=== PATIENT | female | born 1960 | race Caucasian/White ===

== ENCOUNTER 2018-06-30 14:05 | Outpatient (CLI) | payer OTHER ==
[~2018-06-30] VITALS: Ht 172.7 cm; Wt 83.9 kg
[2018-06-30 14:00] VITALS: BP 112/62
[2018-06-30] MEDS ORDERED: LOPERAMIDE2 M1 PO (16:20)
[2018-06-30] MEDS ORDERED: OMEPRAZOLE20 M2 ORAL (16:20)
[2018-06-30] MEDS ORDERED: LEXAPRO5 MG ORAL (16:20)
[2018-06-30] MEDS ORDERED: VITAMIN D1000 UNI1 ORAL (16:20)
[2018-06-30] MEDS ORDERED: TYLENOL325 M1 PO (16:20)
[2018-06-30] MEDS ORDERED: ZANTAC150 MG ORAL (16:20)
--- NOTE | 2018-06-30 16:24 | GI Initial Consult Note ---
History of Present Illness General Date patient seen: Jun 30, 2018 Time patient seen: 16:02 Referring physician: DEVON Reason for Consultation: ABDOMINAL PAIN Present Illness HPI 58 year old female presents today with c/o of abdominal pain. The patient recently had multiple visits to other MDs without being able to find the reasoning behind her abdominal pain. She recently undergone an EGD approximately 1 month ago, noted with an esophageal nodule and medium hiatal hernia. H Pylori was negative. Stool culture negative. She presents today with c/o of abdominal pain, GERD, occasional vomiting and abdominal bloating. Home Meds Reported Medications Escitalopram Oxalate (LEXAPRO) 5 Mg Tablet, 10 MG ORAL DAILY, TAB 06/30/18 Acetaminophen (Tylenol) Unknown Strength Capsule, PO, CAP 06/30/18 Omeprazole (OMEPRAZOLE) 20 Mg Capsule.dr, 20 MG ORAL DAILY, CAP 06/30/18 Ranitidine Hcl* (ZANTAC*) 150 Mg Tablet, 150 MG ORAL TWICE A DAY, TAB 06/30/18 Cholecalciferol (Vitamin D3)* (VITAMIN D*) 1,000 Unit Tablet, 1000 UNIT ORAL DAILY, #30 TAB 06/30/18 Loperamide Hcl (LOPERAMIDE) Unknown Strength Tablet, PO, TAB 06/30/18 Med list reviewed/reconciled: Yes Allergies: Coded Allergies: Sulfa (Sulfonamide Antibiotics) (Unverified Allergy, Severe, 06/30/18) Patient History History Provided By: Patient, Medical Record [facility] Narrative Chronic gastritis Severe major depression PUD GERD hemorrhoids chronic diarrhea nodule of the esophagus Past Surgical History: Appendectomy Breast Augmentation Pertinent Family History: none Social History: Denies: smoking, alcohol use, drug use, other Review of Systems All Other Systems: negative except mentioned in HPI Physical Exam T 98.0 BP 112/62 P 78 94 RA HT 5'8 WT 185.5 lbs Sp02 EP Interpretation: reviewed, normal General Appearance: well appearing, no apparent distress, alert Head: normocephalic EENT: PERRL/EOMI, normal ENT inspection Neck: supple Respiratory: normal breath sounds, no respiratory distress Cardiovascular: normal rate Gastrointestinal: normal inspection, non tender, soft, normal bowel sounds, non -distended Rectal: deferred Genitourinary: no CVA tenderness Musculoskeletal: normal inspection, back normal Neurologic: normal inspection, alert, oriented x3, responsive Psychiatric: normal inspection, judgement/insight normal, memory normal Skin: normal inspection, normal color, no rash, warm/dry, palpation normal, well hydrated Lymphatic: normal inspection, no adenopathy GI: Plan Problems: (1) Depression (2) Gastritis (3) PUD (peptic ulcer disease) (4) GERD (gastroesophageal reflux disease) (5) Abdominal pain (6) Hemorrhoids (7) Irritable bowel syndrome (IBS) Plan Rx trial Viberzi 100mg BID RTC if no improvement Seen with Dr. Apodaca. Thank you for this patient referral. The patient was seen and examined at bedside and all new and available data was reviewed in the patients chart. I agree with the above findings, impression and plan. (Patient seen earlier today. Signature stamp does not reflect patient encounter time.). - MD Jennifer CastilloBullhead Community HospitalStevo GARSIA Jun 30, 2018 16:24
== END 2018-06-30 14:37 | disposition home or self-care (01) ==
LOC: PAN 14:05
DX: R10.9 Unspecified abdominal pain (principal); F32.9 Major depressive disorder, single episode, unspecified; K29.70 Gastritis, unspecified, without bleeding; K27.9 Peptic ulcer, site unspecified, unspecified as acute or chronic, without hemorrhage or perforation; K21.9 Gastro-esophageal reflux disease without esophagitis; K64.9 Unspecified hemorrhoids; K58.9 Irritable bowel syndrome, unspecified; Z90.89 Acquired absence of other organs; Z88.2 Allergy status to sulfonamides; K44.9 Diaphragmatic hernia without obstruction or gangrene
CPT/HCPCS: 99202

== ENCOUNTER 2020-02-01 05:58 | Emergency (ER) | payer MEDICAID, OTHER ==
[~2020-02-01] VITALS: Ht 177.8 cm; Wt 86.2 kg
[~2020-02-01 05:58] MED LIST: LEXAPRO5 MG ORAL; LOPERAMIDE2 M1 PO; OMEPRAZOLE20 M2 ORAL; TYLENOL325 M1 PO; VITAMIN D1000 UNI1 ORAL; ZANTAC150 MG ORAL
[2020-02-01 06:15] VITALS: BP 138/77
--- NOTE | 2020-02-01 06:15 | NUR ---
ED Nurse Note: Patient walked in to ED from home c/o allergic reaction after taking Immunocal yesterday at 1500. Reports difficulty breathing, sorethroat, throat dryness. O2 97% RA, not in any distress. Denies hives, itchiness. Per pt, she took allergy meds but no relief.
[2020-02-01] MEDS ORDERED: BENADRYL25 M3 PO (06:33)
--- NOTE | 2020-02-01 06:35 | NUR ---
ED Nurse Note: Pt cleared by ERMD for discharge. DC instructions/prescription was given and explained to pt and verbalized understanding of teachings. All medical deviecs such as ID band removed. Pt is AAO x4, ambulatory and left with all personal belongings.
--- NOTE | 2020-02-01 06:40 | Emergency Room Report ---
History of Present Illness General Chief Complaint: Allergic Reaction Source: Patient Present Illness HPI Patient is a 59-year-old female who presents to the ER complaining of allergic reaction. Patient states that she has dry throat and difficulty breathing after taking Immunocal yesterday at 3 PM. She states that she took loratadine but still has the same issues. Patient states that she is still having dry mouth and feels like she is having an allergic reaction. No rash. No chest pain. Patient is requesting another allergy medicine. I explained to her that allergy medicines would further make her throat feel dry but she states that she still wants it. Patient is in no acute distress. COVID-19 risk:Travel to affect: No Has patient experienced chadwick: No Allergies: Coded Allergies: SULFA (SULFONAMIDE ANTIBIOTICS) (Unverified Allergy, Severe, 06/30/18) Patient History Social History: Denies: smoking, alcohol use, drug use Reviewed Nursing Documentation: PMH: Agreed; PSxH: Agreed Nursing Documentation-PMH Hx Cardiac Problems: No Hx Cancer: No Hx Gastrointestinal Problems: Yes Hx Neurological Problems: No Review of Systems All Other Systems: negative except mentioned in HPI Physical Exam Vital Signs Date Time Temp Pulse Resp B/P (MAP) Pulse Ox O2 Delivery O2 Flow Rate FiO2 02/01/20 06:07 97.7 71 16 138/77 (97) 97 Room Air Sp02 EP Interpretation: reviewed, normal General Appearance: no apparent distress, alert, GCS 15, non-toxic Head: normocephalic, atraumatic Eyes: bilateral eye normal inspection, bilateral eye PERRL ENT: hearing grossly normal, normal pharynx, no angioedema, normal voice Neck: full range of motion, supple/symm/no masses Respiratory: chest non-tender, lungs clear, normal breath sounds, speaking full sentences, other - No respiratory distress, no wheezing, no stridor Cardiovascular #1: regular rate, rhythm, no edema Gastrointestinal: normal bowel sounds, non tender, soft, non-distended, no guarding, no rebound Rectal: deferred Genitourinary: normal inspection, no CVA tenderness Musculoskeletal: back normal, normal range of motion, calf tenderness, gait/ station normal, non-tender Neurologic: alert, motor strength/tone normal, oriented x3, sensory intact, responsive, speech normal Psychiatric: judgement/insight normal, memory normal, mood/affect normal, no suicidal/homicidal ideation Skin: no rash Lymphatic: no adenopathy Medical Decision Making Diagnostic Impression: Primary Impression: Encounter for medical screening examination ER Course Patient in no acute distress. Patient has no signs of allergic reaction. She has no rash, no wheezing, no intraoral swelling, no conjunctivitis. Requesting allergy medication. I have given her a prescription for Benadryl. After discussing risks and benefits of further diagnostics, treatment plans, as well as indications for and risks of admission, the patient is agreeable to being discharged home. I have explained that their evaluation and treatment in the emergency department today is an important step towards them achieving better health but that their evaluation today is not intended to replace further evaluation and treatment by a physician in their local clinic. I have explained that while the current findings suggest no immediate life threatening emergency they will require further evaluation and treatment by a physician of their choice in their area. They understand that it will be necessary for them to review the final reports of their ED visit with their clinic physician. We have reviewed indications for return to the Emergency Department. I have explained that additional time may need to pass and/or additional testing as an outpatient may be necessary before a definitive diagnosis can be made. They tell me they are willing to follow up as instructed within the timeframe I recommend. They appear to understand what we discussed. Additionally they understand that if they are unable to be seen by an outpatient physician they are welcome, and in fact should, return to the Emergency Department for a repeat evaluation. The patient is stable at time of discharge. Last Vital Signs Date Time Temp Pulse Resp B/P (MAP) Pulse Ox O2 Delivery O2 Flow Rate FiO2 02/01/20 06:35 97.7 71 16 138/77 97 Room Air Disposition: HOME, SELF-CARE Condition: Stable Scripts Diphenhydramine HCl (Benadryl) 25 Mg Capsule 25 MG PO Q6HR, #20 CAP Prov: Becca Sanders M.D. 02/01/20 Referrals: [facility] Patient Instructions: Allergies Additional Instructions: The patient was provided with discharge instructions, notified to follow-up with a primary care doctor and or specialist in the next 24-48 hours, and to return to the ED if they have worsening of their symptoms. Please note that this report is being documented using [employer] technology. This can lead to erroneous entry secondary to incorrect interpretation by the dictating instrument. Becca Sanders M.D. Feb 01, 2020 06:40
== END 2020-02-01 06:35 | disposition home or self-care (01) ==
LOC: EMR 06:35
DX: T78.40XA Allergy, unspecified, initial encounter (principal); X58.XXXA Exposure to other specified factors, initial encounter; Y92.9 Unspecified place or not applicable; Z88.2 Allergy status to sulfonamides
CPT/HCPCS: 99281

== ENCOUNTER 2020-07-11 23:39 | Emergency (ER) | payer MEDICAID, OTHER ==
[~2020-07-11] VITALS: Ht 175.3 cm; Wt 59.0 kg
[~2020-07-11 23:39] MED LIST changes: +BENADRYL25 M3 PO
[2020-07-12 00:02] VITALS: BP 111/63
[2020-07-12] MEDS ORDERED: FLUCONAZOLE100 MG ORAL (00:13)
[2020-07-12] MEDS ORDERED: PROTONIX40 MG ORAL (00:13)
--- NOTE | 2020-07-12 00:13 | Emergency Room Report ---
History of Present Illness General Chief Complaint: General Complaint Source: Patient, Medical Record Present Illness HPI This is a 60-year-old female who presents with general complaint. She said that she felt shaky. She said it started yesterday. She was seen at [facility] and had blood work was normal. She also has history of chronic reflux and thrush. She was taking nystatin but she said it was not working. She said that when he takes pills she felt her throat closing off. She has no problem eating or drinking. She wanted IV Diflucan. She has no fever chills but no weight loss. Denies any other complaint. She claimed that [facility] would not treat her because of her insurance. Allergies: Coded Allergies: SULFA (SULFONAMIDE ANTIBIOTICS) (Unverified Allergy, Severe, 06/30/18) COVID-19 Screening Contact w/high risk pt: No Experienced COVID-19 symptoms?: No COVID-19 Testing performed HOT DIPPER: No Patient History Past Medical History: see triage record, old chart reviewed Past Surgical History: none Pertinent Family History: none Social History: Denies: smoking Now: No Immunizations: other Reviewed Nursing Documentation: PMH: Agreed; PSxH: Agreed Nursing Documentation-PMH Hx Cardiac Problems: No - arthritis Hx Cancer: No Hx Gastrointestinal Problems: Yes Hx Neurological Problems: No Review of Systems Eye: Denies: eye pain, blurred vision ENT: Denies: ear pain, nose congestion, throat swelling Respiratory: Denies: cough, shortness of breath Cardiovascular: Denies: chest pain, palpitations Gastrointestinal: Denies: abdominal pain, diarrhea, nausea, vomiting Musculoskeletal: Denies: back pain, joint pain Skin: Denies: rash Neurological: Denies: headache, numbness Endocrine: Denies: increased thirst, increased urine Hematologic/Lymphatic: Denies: easy bruising All Other Systems: negative except mentioned in HPI Physical Exam Vital Signs Date Time Temp Pulse Resp B/P (MAP) Pulse Ox O2 Delivery O2 Flow Rate FiO2 07/11/20 23:49 97.0 73 18 110/65 (80) 98 Room Air 07/12/20 00:02 99 Vitals normal Sp02 EP Interpretation: reviewed, normal General Appearance: well appearing, no apparent distress, alert Head: normocephalic, atraumatic Eyes: bilateral eye PERRL, bilateral eye EOMI ENT: hearing grossly normal, normal pharynx, other - Thrush Neck: full range of motion, supple, no meningismus Respiratory: chest non-tender, lungs clear, normal breath sounds Cardiovascular #1: regular rate, rhythm, no murmur Gastrointestinal: normal bowel sounds, non tender, no mass, no organomegaly, no bruit, non-distended Musculoskeletal: back normal, normal range of motion, gait/station normal Psychiatric: mood/affect normal Medical Decision Making Diagnostic Impression: Primary Impression: Encounter for generalized patient complaints Additional Impression: Thrush of mouth and esophagus ER Course Patient presents with general complaint. I suspect that there is a strong psychogenic component to this. He is imminently stable. I see no need for IV Diflucan. Will discharge home with prescription of Diflucan. She said that she seen GI doctor and had endoscopy done already. Will discharge home. Last Vital Signs Date Time Temp Pulse Resp B/P (MAP) Pulse Ox O2 Delivery O2 Flow Rate FiO2 07/12/20 00:02 71 18 Room Air 99 07/12/20 00:02 97.0 111/63 99 Status: unchanged Disposition: HOME, SELF-CARE Condition: Stable Scripts Pantoprazole* (PROTONIX*) 40 Mg Tablet.dr 40 MG ORAL DAILY, #30 TAB Prov: Armin Rodriguez MD 07/12/20 Fluconazole (FLUCONAZOLE) 100 Mg Tablet 100 MG ORAL DAILY, #7 TAB 0 Refills Prov: Armin Rodriguez MD 07/12/20 Referrals: [facility],REFERRING (PCP) Additional Instructions: Follow-up with your doctor in 7 days. Return if symptoms worsen. Armin Rodriguez MD Jul 12, 2020 00:13
[2020-07-12 00:15] VITALS: BP 111/63
== END 2020-07-12 00:15 | disposition home or self-care (01) ==
LOC: EMR 07-12 00:09
DX: B37.81 Candidal esophagitis (principal); B37.0 Candidal stomatitis; Z88.2 Allergy status to sulfonamides
CPT/HCPCS: 99282